=== PATIENT | female | born 1985 | race Caucasian/White ===

== ENCOUNTER 2023-03-16 06:45 | Emergency (ER) | payer SELFPAY ==
[~2023-03-16] VITALS: Ht 165.1 cm; Wt 59.0 kg
[2023-03-16] MEDS ORDERED: OLANZAPINE 10 MG/VIAL IM STA (06:55)
[2023-03-16] MEDS ORDERED: LORAZEPAM 2MG/ML CPJ IM STA (06:55)
[2023-03-16 08:42] LABS: BASOPHILS % 0.4 % (0.0-2.0); EOSINOPHILS % 0.1 % (0.0-5.0); HEMATOCRIT. 31.4 % (36.0-48.0); HEMOGLOBIN. 10.7 g/dL (12.0-16.0); LYMPHOCYTES % 27.4 % (20.0-50.0); MEAN CORPUSCULAR HEMOGLOBIN 29.4 pg (28.0-32.0); MEAN CORPUSCULAR VOLUME 86.6 fL (81.0-99.0); MEAN PLATELET VOLUME 6.7 fl (7.4-10.4); MONOCYTES % 10.8 % (2.0-8.0); NEUTROPHILS % 61.3 % (40.0-76.0); PLATELET 287 x1000/uL (130-400); RED BLOOD CELL COUNT 3.63 mill/uL (4.2-5.4)
[2023-03-16 08:50] LABS: CHLORIDE 109 mEq/L (98-107)
[2023-03-16 08:51] LABS: HCG SCREEN NEGATIVE
[2023-03-16 08:57] LABS: ETHANOL BLOOD < 10 mg/dL
[2023-03-17 04:12] LABS: CLARITY URINE TURBID (CLEAR); COLOR URINE YELLOW (YELLOW); KETONES URINE NEGATIVE (NEGATIVE); LEUKOCYTE ESTERASE URINE 3+ (NEGATIVE); NITRITE URINE NEGATIVE (NEGATIVE); OCCULT BLOOD URINE NEGATIVE (NEGATIVE); PH URINE 7.5 (4.5-8.0); PROTEIN URINE 1+ (NEGATIVE); SPECIFIC GRAVITY URINE 1.022 (1.005-1.030)
[2023-03-17 04:31] LABS: *BARBITURATES SCREEN URINE NEGATIVE (NEGATIVE); *BENZODIAZEPINES SCREEN URINE NEGATIVE (NEGATIVE); METHADONE URINE SCREEN NEGATIVE (NEGATIVE); OPIATES URINE SCREEN NEGATIVE (NEGATIVE); PHENCYCLIDINE URINE SCREEN NEGATIVE (NEGATIVE)
[2023-03-17 04:38] LABS: *AMPHETAMINES SCREEN URINE PRESUMTIVE POSITIVE (NEGATIVE); *COCAINE SCREEN URINE PRESUMTIVE POSITIVE (NEGATIVE); CANNABINOID URINE SCREEN PRESUMTIVE POSITIVE (NEGATIVE)
[2023-03-17] MEDS ORDERED: CEFTRIAXONE SODIUM 1 G/VIAL IM ONE (05:30)
[2023-03-17] MEDS ORDERED: AZITHROMYCIN 500 MG TABLET PO NR (05:45)
[2023-03-17] MEDS ORDERED: LEVOFLOXACIN 500MG TABLET PO NR (05:45)
[2023-03-17] MEDS ORDERED: AZITHROMYCIN 500 MG TABLET PO SCH (09:00)
[2023-03-17 11:00] VITALS: BP 122/86
[2023-03-17] MEDS ORDERED: LEVOFLOXACIN 500MG TABLET PO SCH (11:00)
== END 2023-03-17 11:47 | disposition home or self-care (01) ==
LOC: ER 06:50
DX: F19.10 Other psychoactive substance abuse, uncomplicated (principal)
CPT/HCPCS: 36415; 70450; 80053; 80305; 80320; 81003; 81025; 84703; 85025; 87077; 87086; 87186; 96372; 99291; J2060; J3490; Z7610; G0480